=== PATIENT | male | born 2000 ===

== ENCOUNTER 2022-07-01 15:26 | Observation (INO) | payer OTHER ==
[~2022-07-01] VITALS: Ht 188 cm; Wt 78.6 kg
--- NOTE | 2022-07-01 15:20 | NUR ---
Arrived to room 319 via stretcher from [facility]. Oriented to room and policy. Assessment complete. A&Ox4. Denies pain, shortness of breath or nausea. VS WNL-slightly elevated blood pressure noted. INT to left [id number] well with no s/s of infiltration noted. Denies current questions/concerns. Dr Kaur notified of patients arrival. WIll monitor.
[2022-07-01 15:55] VITALS: BP 152/82; PULSE 85; TEMP 98.7
[2022-07-01 19:15] VITALS: BP 145/86; PULSE 62; TEMP 98.7
[2022-07-01 19:16] VITALS: BP 145/86; PULSE 62; TEMP 98.7
[2022-07-01 23:29] VITALS: BP 129/74; PULSE 65; TEMP 97.9
[2022-07-02 03:48] VITALS: BP 148/71; PULSE 62; TEMP 97.4
--- NOTE | 2022-07-02 05:00 | NUR ---
ASSESSMENT COMPLETE FOR [employer]. PT RESTING IN BED SLEEPING. PT DENIED GENERAL PAIN, CHEST PAIN, PALPITATIONS, SOB, N,V,D OR DIZZINESS. PT HAD A PRETTY UNEVENTFUL NIGHT. PT EXPRESSED NO ADDITIONAL NEEDS AT THIS TIME. CALL LIGHT WITHIN REACH.
[2022-07-02 06:01] LABS: BASO % 0.5 % (0.0-2.0); EOS # 0.1 K/mm3 (0.0-0.7); EOS % 1.6 % (0.0-4.0); GRAN # 3.4 K/mm3 (1.4-6.5); HEMATOCRIT 45.5 % (42.0-52.0); HEMOGLOBIN 15.5 g/dl (13.5-18.0); LYMPH # 2.7 K/mm3 (1.2-3.4); LYMPH % 36.3 % (20.0-51.0); MEAN CELL VOLUME 90 fl (80.0-100.0); MEAN CORPUSCULAR HEMOGLOBIN 31 pg (27-31); MEAN CORPUSCULAR HGB CONC 34 g/dl (33.0-37.0); MEAN PLATELET VOLUME 10.5 fl (7.4-10.4); MONO # 1.1 K/mm3 (0.1-0.6); MONO % 14.5 % (1.7-9.3); PLATELET COUNT 173 K/mm3 (130-400); RED BLOOD COUNT 5.08 M/mm3 (4.20-5.60); REDCELL DISTRIBUTION WIDTH-CV 12.8 % (11.5-14.5)
[2022-07-02 06:24] LABS: CALCIUM 9.3 mg/dL (8.4-10.2); CREATININE, serum 1.02 mg/dL (0.72-1.25); POTASSIUM 4.2 mmol/L (3.5-4.5)
[2022-07-02 07:55] VITALS: BP 135/72; PULSE 63; TEMP 98.2
[2022-07-02] MEDS ORDERED: CARDIZEM CD 12120 MG PO (08:16)
[2022-07-02] MEDS ORDERED: ASPIRIN 81M81 MG/TA2 PO (09:09)
--- NOTE | 2022-07-02 09:41 | NUR ---
Initial visit; Patient thanked [employer] for looking in on him and introducing herself. Patient a Danilo Hannon was very polite and stated he is getting better. Patient declined spiritual care. [employer] thanked Tato for his service, taking care of all of us and wished him a rapid and thorough recovery. [employer] Hand will keep Tato in her prayers.
[2022-07-02 12:00] VITALS: BP 149/72; PULSE 71; TEMP 98.7
--- NOTE | 2022-07-02 12:48 | NUR ---
PATIENT RECIEVED ALL DISCHARGE INSTRUCTIONS WHICH INCLUDED NEW MEDICATIONS AND FOLLOW UP APPOINTMENTS. ACKNOWLEDGED UNDERSTANDING. WALKED WITH RN TO EXIT AND WAS PICKED UP BY FRIEND FROM WORK. NO ISSUES
== END 2022-07-02 13:07 | disposition home or self-care (01) ==
LOC: MEDICAL 15:26
PROVIDERS: ADMIT Family Medicine
DX: I48.0 Paroxysmal atrial fibrillation (principal); R11.2 Nausea with vomiting, unspecified; R03.0 Elevated blood-pressure reading, without diagnosis of hypertension; Z72.89 Other problems related to lifestyle; Z79.82 Long term (current) use of aspirin
CPT/HCPCS: G0378